=== PATIENT | male | born 2000 | race Two or more races ===

== ENCOUNTER 2024-03-02 18:42 | Emergency (ER) | payer OTHER ==
[~2024-03-02] VITALS: Ht 175.3 cm; Wt 81.8 kg
[2024-03-02 19:30] VITALS: PULSE 115; RESP 18; O2SAT 99
[2024-03-02 19:30] LABS: Basophils # (auto) 0 10 ^3/uL (0-0.2); Basophils % (auto) 0.5 % (0.0-2.0); Eosinophils # (auto) 0 10 ^3/uL (0-0.8); Eosinophils % (auto) 0.1 % (0.0-7.0); Hematocrit 47.3 % (41.0-53.0); Hemoglobin 16.4 g/dL (13.5-17.5); Lymphocytes # (auto) 1.2 10 ^3/uL (0.4-5.4); Lymphocytes % (auto) 17.4 % (10.0-50.0); Mean Corpuscular Hemoglobin 31.7 pg (28.0-32.0); Mean Corpuscular Hgb Conc. 34.6 g/dL (32.0-36.0); Mean Corpuscular Volume 91.5 fL (80.0-100.0); Monocytes # (auto) 0.5 10 ^3/uL (0-1.3); Monocytes % (auto) 7.3 % (0.0-12.0); Neutrophils # (auto) 5.1 10 ^3/uL (1.6-8.6); Neutrophils % (auto) 74.7 % (37.0-80.0); Red Blood Cells 5.17 10^6/uL (4.5-5.90); Red Cell Distribution Width 14.3 % (11.8-14.3); White Blood Cell 6.8 10^3/uL (4.4-10.8)
[2024-03-02 19:52] LABS: Alanine Aminotransferase 20 U/L (7-40); Albumin 4.4 g/dL (3.2-4.8); Alkaline Phosphatase 90 U/L (46-116); Anion Gap 7 (5-15); Aspartate Aminotransferase 19 U/L (13-40); Calcium 9.2 mg/dL (8.7-10.4); Carbon Dioxide 25 mmol/L (20-30); Chloride 108 mmol/L (98-107); Glucose 108 mg/dL (74-106); Potassium 3.7 mmol/L (3.5-5.1); Sodium 140 mmol/L (136-145)
[2024-03-02 19:53] LABS: Bilirubin, Total 0.4 mg/dL (0.2-1.0); Total Protein 7.4 g/dL (5.7-8.2)
[2024-03-02 20:00] LABS: BUN/Creatinine Ratio 4.7 (10.0-20.0); Blood Urea Nitrogen < 5 mg/dL (9-23)
[2024-03-02] MEDS: SODIUM CHLORIDE 0.9% 2,000 ML IV ONE (21:44)
[2024-03-02] MEDS: LORazepam 2MG/ML-1ML VIAL IV ONE (23:47)
[2024-03-02] MEDS: diphenhdrAMINE HCL 50 MG/1 ML VL IV ONE (23:47)
[2024-03-03 00:34] LABS: Amphetamine Screen, Urine Neg (NEGATIVE); Barbiturate Scree,Urine Neg (NEGATIVE); Benzodiazephine Screen, Urine Pos (NEGATIVE)
[2024-03-03 00:35] LABS: Cannabinoid Screen, Urine Neg (NEGATIVE); Cocaine Screen, Urine Neg (NEGATIVE); Opiate Scree,Urine Neg (NEGATIVE); Phencyclidine Screen, Urine Neg (NEGATIVE)
[2024-03-03] MEDS: SODIUM CHLORIDE 0.9% 1,000 ML IV ONE (06:59)
[2024-03-03 07:20] VITALS: PULSE 87; RESP 16; TEMP 97.9; O2SAT 97
[2024-03-03 08:41] VITALS: BP 116/68; PULSE 79; RESP 20; O2SAT 97
== END 2024-03-03 08:45 | disposition home or self-care (01) ==
LOC: EDBD 18:42 → ER 18:49
DX: G92.9 Unspecified toxic encephalopathy (principal)
CPT/HCPCS: 36415; 70450; 72170; 80053; 80307; 85025; 96361; 96374; 96375; 99285; J1200; J2060; J7030